=== PATIENT | female | born 1970 | race Two or more races ===

== ENCOUNTER 2022-07-02 12:34 | Day surgery (SDC) | payer OTHER, SELFPAY ==
[2022-07-02 13:20] VITALS: BP 116/80; PULSE 69; RESP 16; TEMP 36.1; O2SAT 99; BMI 32.9
--- NOTE | 2022-07-02 13:51 | MHC.SHP ---
Pre-Procedural Eval Section A Date of Service: 07/02/22 The patient is an INPATIENT: No Changes since office visit: No Cold of Flu in the past 2 weeks, No New Medical Problems, No Changes in Medication and No Patient answered all questions The History & Physical has been completed within 30 days and I have reviewed it.: Yes Section B Chief Complaint: GERD Allergies: Allergies Allergy/AdvReac Type Severity Reaction Status Date / Time acetaminophen [From Tylenol] Allergy Unknown Unverified 07/01/22 07:49 ciprofloxacin Allergy Unknown Unverified 07/01/22 07:49 codeine Allergy Unknown Unverified 07/01/22 07:49 dicyclomine [From Bentyl] Allergy Unknown Unverified 07/01/22 07:49 divalproex sodium Allergy Unknown Unverified 07/01/22 07:49 [From Depakote] lubiprostone Allergy Unknown Unverified 07/01/22 07:49 pseudoephedrine Allergy Unknown Unverified 07/01/22 07:49 sulfamethoxazole Allergy Unknown Unverified 07/01/22 07:49 [From Bactrim] trimethoprim [From Bactrim] Allergy Unknown Unverified 07/01/22 07:49 valproic acid Allergy Unknown Unverified 07/01/22 07:49 Plan I have reviewed the history and physical and performed a pertinent physical examination on my patient. No changes have occurred unless specified. Time Spent With Patient Time: Total time managing care of this patient today ____ minutes.
--- NOTE | 2022-07-02 14:18 | P.BOP_ITS ---
Brief Operative Note Date of Service: 07/02/22 Pre-op diagnosis: gerd Post-op diagnosis: same Procedure: egd Surgeon: Randolph Bhagat Anesthesia: MAC Was an Veterinary Practice Manager used for this Procedure?: No Estimated blood loss (mL): 1 Pathology: other Condition: stable Disposition: PACU
[2022-07-02 14:29] VITALS: BP 97/61; PULSE 80; RESP 18; TEMP 36.1; O2SAT 99
[2022-07-02 14:44] VITALS: BP 118/82; PULSE 80; RESP 18; TEMP 36.3; O2SAT 99
--- NOTE | 2022-07-02 23:02 | OP_ITS ---
DATE OF SERVICE: 07/02/2022 SURGEON: Randolph Bhagat MD INDICATIONS: Gastroesophageal reflux disease. PREOPERATIVE DIAGNOSIS: POSTOPERATIVE DIAGNOSIS: PROCEDURE PERFORMED: Upper endoscopy with biopsy. ESTIMATED BLOOD LOSS: COMPLICATIONS: ANESTHESIA: Monitored anesthesia care. ASSISTANTS: SPECIMENS: DESCRIPTION OF PROCEDURE: History and physical was performed. The risks and benefits of the procedure were explained to the patient. Informed consent was obtained. The patient was placed in the left lateral decubitus position. The Olympus video gastroscope was introduced into the esophagus, stomach, and duodenum. Examination was performed. The scope was removed. She tolerated the procedure well and was returned to the recovery area in stable condition. FINDINGS: Esophagus: The esophagus was normal. There was no esophagitis. The EG junction was slightly irregular. Stomach: The stomach showed no evidence of masses or ulcers. Multiple benign-appearing gastric polyps measuring less than 5 mm were present in the body and fundus consistent with fundic gland polyps. Biopsies were obtained from the antrum and from the polyps. Biopsies were also obtained from the EG junction. Duodenum: The bulb and 2nd portion were normal. IMPRESSION: 1. Gastric polyps. 2. Gastroesophageal reflux disease. RECOMMENDATION: Follow up the biopsy results. MD ALIVIA Frey/MAMADOU / [id number]
== END 2022-07-02 15:24 | disposition home or self-care (01) ==
PROVIDERS: PCP Internal Medicine; Visit Provider Internal Medicine Gastroenterology
PROC: 0DJ08ZZ Inspection of Upper Intestinal Tract, Via Natural or Artificial Opening Endoscopic (ICD-10-PCS; CPT 43235; principal; 2022-07-02 13:00)
DX: K21.9 Gastro-esophageal reflux disease without esophagitis (principal); K31.7 Polyp of stomach and duodenum; K58.1 Irritable bowel syndrome with constipation; E03.9 Hypothyroidism, unspecified; G43.909 Migraine, unspecified, not intractable, without status migrainosus; G47.33 Obstructive sleep apnea (adult) (pediatric); Z79.899 Other long term (current) drug therapy; Z88.1 Allergy status to other antibiotic agents; Z88.8 Allergy status to other drugs, medicaments and biological substances; Z98.890 Other specified postprocedural states
CPT/HCPCS: 43239; 88305; 88342

== ENCOUNTER 2023-04-17 09:44 | Day surgery (SDC) | payer OTHER, SELFPAY ==
[2023-04-15 13:20] VITALS: BMI 34.7
--- NOTE | 2023-04-17 09:34 | HO.ANESPROP2 ---
[facility]LY [facility] Past Medical History Medical History Common bile duct dilatation Sphincter of Oddi dysfunction CPAP (continuous positive airway pressure) dependence Obstructive sleep apnea GERD (gastroesophageal reflux disease) Constipation Depression Anxiety Back pain Neck pain Hypothyroidism Migraines Surgical History Surgical History History of esophagogastroduodenoscopy (EGD) History of ERCP History of Problems with Anesthesia: No Social History Social History Patient Tobacco Use Status: Former Tobacco user Meds Allergies Allergy/AdvReac Type Severity Reaction Status Date / Time acetaminophen [From Tylenol] Allergy Unknown Unverified 04/17/23 09:49 ciprofloxacin Allergy Unknown Unverified 04/17/23 09:49 codeine Allergy Hives Unverified 04/17/23 09:59 dicyclomine [From Bentyl] Allergy Vomiting Unverified 04/17/23 09:59 lubiprostone Allergy Gastrointestinal Unverified 04/17/23 09:59 Upset pseudoephedrine Allergy Unknown Unverified 04/17/23 09:49 sulfamethoxazole Allergy Hives Unverified 04/17/23 09:59 [From Bactrim] trimethoprim [From Bactrim] Allergy Hives Unverified 04/17/23 09:59 valproic acid Allergy Unknown Unverified 04/17/23 09:49 divalproex sodium AdvReac Unknown Unverified 04/17/23 09:59 [From Depakote] Home Medications Medication Instructions Recorded Confirmed Last Taken Type buspirone 15 mg tablet 15 mg PO BID 07/01/22 04/15/23 Unknown History cetirizine 10 mg tablet 10 mg PO DAILY 07/01/22 04/15/23 Unknown History eletriptan 40 mg tablet 40 mg PO DAILY 07/01/22 04/15/23 Unknown History escitalopram oxalate 20 mg tablet 20 mg PO DAILY 07/01/22 Unknown History esomeprazole magnesium 40 mg 40 mg PO DAILY 07/01/22 04/15/23 Unknown History capsule,delayed release famotidine 20 mg tablet 20 mg PO BEDTIME 07/01/22 Unknown History fremanezumab-vfrm 225 mg/1.5 mL mg subcut 07/01/22 Unknown History subcutaneous auto-injector hydroxyzine HCl 50 mg/mL 50 mg IM Q6H PRN unknown 07/01/22 Unknown History intramuscular solution levothyroxine 150 mcg tablet 150 mcg PO DAILY 07/01/22 04/15/23 Unknown History lubiprostone 24 mcg capsule 24 mcg PO BID 07/01/22 Unknown History mirtazapine 30 mg tablet 30 mg PO BEDTIME 07/01/22 Unknown History omega-3 fatty acids-vitamin E 1,000 cap PO DAILY 07/01/22 07/01/22 Unknown History 1,000 mg capsule onabotulinumtoxinA 200 unit unit 07/01/22 07/01/22 Unknown History solution for injection quetiapine 100 mg PO BEDTIME 07/01/22 04/15/23 Unknown History rosuvastatin 40 mg tablet 40 mg PO DAILY 07/01/22 04/15/23 Unknown History topiramate 25 mg tablet (Topamax) 25 mg PO DAILY 07/01/22 04/15/23 Unknown History zolpidem 10 mg tablet 10 mg PO BEDTIME PRN Insomnia 07/01/22 04/15/23 Unknown History sertraline 25 mg tablet 25 mg PO DAILY 04/15/23 04/15/23 Unknown History Exam Height,Weight and Vital Signs: Height 5 ft 6 in Weight 97.522 kg Airway Mallampati Class: II TM Dist: >3cm Neck ROM: Full Loose/Missing/Broken Teeth: No Heart: RRR Lungs: CTA Assessment and Plan Assessment Anesthesia Assessment: Anesthesia Plan Discussed and Chart Reviewed Final Anesthetic Review History of Problems with Anesthesia: No NPO: Yes ASA Class: II Final Preanesthetic Review: Meds/Allgs Chart Reviewed, Consent Obtained/Reviewed and Anes Risks/Benef Reviewed Patient Risk: Low Procedure Risk: Low Anesthetic Plan Anesthetic Plan: MAC: Disposition: Standard PACU
[2023-04-17 09:53] VITALS: BMI 34.7
[2023-04-17] MEDS: Lactated Ringers 1,000 ML 80 ML IVCONT (10:14)
[2023-04-17 10:28] VITALS: BP 121/84; PULSE 85; RESP 18; TEMP 36.7; O2SAT 99
--- NOTE | 2023-04-17 10:35 | MHC.SHP ---
Pre-Procedural Eval Section A - 24 Hr Update-Section A only Date of Service: 04/17/23 Section B - Complete if H&P > 30 days Chief Complaint: Epigastric pain Details of Present Illness: see H&P no changes Relevant Family History (Specify if Yes): No Relevant Social History: None Present Medications: see Short Stay Collaborative assessment Medical History: No relevant PMH Allergies: Allergies Allergy/AdvReac Type Severity Reaction Status Date / Time acetaminophen [From Tylenol] Allergy Unknown Unverified 04/17/23 09:49 ciprofloxacin Allergy Unknown Unverified 04/17/23 09:49 codeine Allergy Hives Unverified 04/17/23 09:59 dicyclomine [From Bentyl] Allergy Vomiting Unverified 04/17/23 09:59 lubiprostone Allergy Gastrointestinal Unverified 04/17/23 09:59 Upset pseudoephedrine Allergy Unknown Unverified 04/17/23 09:49 sulfamethoxazole Allergy Hives Unverified 04/17/23 09:59 [From Bactrim] trimethoprim [From Bactrim] Allergy Hives Unverified 04/17/23 09:59 valproic acid Allergy Unknown Unverified 04/17/23 09:49 divalproex sodium AdvReac Unknown Unverified 04/17/23 09:59 [From Depakote] Review of Systems Sugical H&P ROS: Negative: Constitution, Cardiovascular, Respiratory, Neurological, Psychiatric, Hem-Onc, Allergic/Immunologic, Gastrointestinal, Genitourinary, Musculoskeletal, Integumentary, Endocrine and Eyes/Ears/Nose/Throat Exam Surgical H&P Exam: Normal: HEENT, Normal: Heart, Normal: Lungs, Normal: Extremities, Normal: Abdomen, Normal: Skin and Normal: Neurological Plan Diagnosis/Plan: Unchanged I have reviewed the history and physical and performed a pertinent physical examination on my patient. No changes have occurred unless specified. Time Spent With Patient Time: Total time managing care of this patient today ____ minutes.
[2023-04-17 11:00] VITALS: BP 98/67; PULSE 86; RESP 16; TEMP 36.5; O2SAT 99
[2023-04-17 11:15] VITALS: BP 111/73; PULSE 73; RESP 16; O2SAT 100
[2023-04-17 11:30] VITALS: BP 127/82; PULSE 69; RESP 16; TEMP 36.3; O2SAT 97
--- NOTE | 2023-04-17 11:44 | OP_ITS ---
DATE OF SERVICE: 04/17/2023 SURGEON: Randolph Bhagat MD INDICATIONS: Epigastric pain. PREOPERATIVE DIAGNOSIS: POSTOPERATIVE DIAGNOSIS: PROCEDURE PERFORMED: Colonoscopy to the terminal ileum with biopsy. ESTIMATED BLOOD LOSS: COMPLICATIONS: ANESTHESIA: Monitored anesthesia care. ASSISTANTS: SPECIMENS: DESCRIPTION OF PROCEDURE: A history and physical was performed. The risks and benefits of the procedure were explained to the patient. Informed consent was obtained. The patient was placed in the left lateral decubitus position. A digital rectal exam was performed and was found to be normal. The Olympus pediatric video colonoscope was introduced into the rectum and advanced to the cecum. The cecum was identified by transillumination, palpation, and identification of the ileocecal valve. Examination was performed. The scope was removed. She tolerated the procedure well and was taken to recovery area in stable condition. FINDINGS: The terminal ileum was normal. The visualized colonic mucosa was normal. The quality of the prep was good. No polyps were identified. Random biopsies were obtained from the sigmoid to rule out microscopic colitis. Retroflexed examination showed small internal hemorrhoids. IMPRESSION: Normal colonoscopy. RECOMMENDATIONS: 1. Follow up the biopsy results. 2. Repeat colonoscopy is recommended in 10 years for average risk individuals. MD ALIVIA Frey/MAMADOU / [id number]
[2023-04-17 11:51] VITALS: BP 126/85; PULSE 88; RESP 17; TEMP 36.1; O2SAT 100
== END 2023-04-17 12:25 | disposition home or self-care (01) ==
PROVIDERS: PCP Family Medicine; Visit Provider Internal Medicine Gastroenterology
PROC: 0DJD8ZZ Inspection of Lower Intestinal Tract, Via Natural or Artificial Opening Endoscopic (ICD-10-PCS; CPT 45378; principal; 2023-04-17 10:50)
DX: R10.13 Epigastric pain (principal); K63.89 Other specified diseases of intestine; K59.00 Constipation, unspecified; K64.8 Other hemorrhoids; K21.9 Gastro-esophageal reflux disease without esophagitis; G43.909 Migraine, unspecified, not intractable, without status migrainosus; E03.9 Hypothyroidism, unspecified; G47.33 Obstructive sleep apnea (adult) (pediatric); F32.A Depression, unspecified; F41.9 Anxiety disorder, unspecified; Z79.899 Other long term (current) drug therapy; Z99.89 Dependence on other enabling machines and devices; Z88.1 Allergy status to other antibiotic agents; Z88.5 Allergy status to narcotic agent; Z88.8 Allergy status to other drugs, medicaments and biological substances; Z90.49 Acquired absence of other specified parts of digestive tract
CPT/HCPCS: 45380; 88305; J2704

== ENCOUNTER 2024-02-17 10:35 | Outpatient (REF) | payer OTHER, SELFPAY ==
[2024-02-17 12:53] LABS: MANUAL DIFF FLAG NO
[2024-02-17 12:56] LABS: Basophils Percent Auto 0.6 % (0-2); Eosinophils Absolute Auto 0.2 X10*3/uL (0.0-0.4); Eosinophils Percent Auto 4.9 % (0-4); Hematocrit 41.8 % (37.0-47.0); Hemoglobin 13.6 g/dl (12.0-16.0); Imm Gran Abs Auto 0.01 X10*3/uL (0.00-0.03); Imm Gran Pct Auto 0.2 % (0.0-0.4); Lymphocytes Absolute Auto 1.9 X10*3/uL (1.2-4.9); Lymphocytes Percent Auto 39.5 % (20-40); Mean Corpuscular HGB Conc 32.5 g/dl (31.0-35.0); Mean Corpuscular Hemoglobin 28.8 pg (27.0-33.0); Mean Corpuscular Volume 88.4 fL (80.0-98.0); Mean Platelet Volume 9.5 fL (9.4-12.3); Monocytes Absolute Auto 0.3 X10*3/uL (0.1-1.2); Monocytes Percent Auto 6.8 % (2-11); Neutrophils Absolute Auto 2.3 x10*3/uL (2.0-8.3); Platelet Count 247 X10*3/uL (160-400); Red Blood Count 4.73 X10*6/uL (4.20-5.50); Red Cell Distribution Width 14.3 % (11.0-16.0); White Blood Count 4.9 X10*3/uL (4.8-10.8)
[2024-02-17 13:18] LABS: Alanine Aminotransferase 32 U/L (0-31); Albumin Level 4.2 g/dL (3.5-5.0); Alkaline Phosphatase 125 U/L (39-117); Aspartate Amino Transferase 32 U/L (5-31); Bilirubin Direct 0.1 mg/dL (0.0-0.5); Bilirubin Total 0.3 mg/dL (0.0-1.0); Lipase 16 U/L (8-78); Total Protein 7.5 g/dL (6.5-8.0)
[2024-02-17 13:24] LABS: TSH reflex Free T4 12.35 uIU/mL (0.32-4.0)
[2024-02-17 14:23] LABS: Free T4 (Free Thyroxine) 1.04 ng/dL (0.71-1.85)
== END 2024-02-17 10:36 | disposition home or self-care (01) ==
LOC: HO.10HDL 10:35
PROVIDERS: Visit Provider Internal Medicine Gastroenterology
DX: K21.9 Gastro-esophageal reflux disease without esophagitis (principal); R10.10 Upper abdominal pain, unspecified
CPT/HCPCS: 36415; 80076; 83690; 84439; 84443; 85025

== ENCOUNTER 2024-02-23 09:57 | Day surgery (SDC) | payer OTHER, SELFPAY ==
--- OUTSIDE RECORDS SUMMARY | 2024-02-22 18:54 | XMS_ITS | Continuity of Care Document ---
Author Organization [facility] Address [address] [facility] [address] [place] [phone] Phone Care Team Providers Care Home Health Care Physician Name Role Phone Jovany Christian Unavailable Unavailable Advance Directives Directive Yes / No Effective Date File Name No Information Encounters Encounter Description Practice Location Reason(s) For Visit Diagnoses Date Provider Providers Copied on Encounter [facility], [address] [facility], [place], [place], [id number], tel:[phone] [address] [facility] No Information Anahi Manzo. [address] [place] [address] [id number], [place], [facility], . tel:[phone] Referring Provider: Jovany Mondragon, [address] [facility] [address], [place], [facility]. tel:[phone] Family History Family Member Type Diagnosis Age At Onset No Information Payers Payer name Insurance type Covered democrat ID Authoriza tion(s) No Information Social History Type Description Quantity Date Captured Comments Sex Female Smoking Status No Information Chief Complaint And Reason For Visit No Information Reason For Referral Reason For Referral No Information History Of Present Illness Encounter Date Complaint History Of Prese nt Illness No Information Functional Status Date Functional Assessmen t No Information Instructions Date Instruction Additional Infor mation No Information Assessments Type Assessment Date No Information Patient Care Teams Name Effective Dates (start - stop) Status Members No Information
[2024-02-23 11:22] VITALS: BMI 33.4
[2024-02-23 11:24] VITALS: BP 111/73; PULSE 90; RESP 14; TEMP 36.8; O2SAT 98
[2024-02-23] MEDS: Lactated Ringers 1,000 ML 80 ML IVCONT (11:27)
--- NOTE | 2024-02-23 11:33 | HO.ANESPROP2 ---
[facility] Past Medical History Medical History Common bile duct dilatation Sphincter of Oddi dysfunction CPAP (continuous positive airway pressure) dependence Obstructive sleep apnea GERD (gastroesophageal reflux disease) Constipation Depression Anxiety Back pain Neck pain Hypothyroidism Migraines Surgical History Surgical History History of esophagogastroduodenoscopy (EGD) History of ERCP History of Problems with Anesthesia: No Social History Social History Are you a primary long term care administrator to a significant other at home: No Do you presently have visiting nurse or other home services: No Patient Tobacco Use Status: Former Tobacco user Use of substances other than those prescribed or required for medical reasons: No Have you been hit, kicked, punched, or otherwise hurt by someone within the past year? If so, by whom?: No Are you DNR?: No Advance Directives: No Advance Directives Information Provided: Yes Recently lost weight without trying: No Nutrition Risks: No Nutritional Risk Patient : No Meds Allergies Allergy/AdvReac Type Severity Reaction Status Date / Time acetaminophen [From Tylenol] Allergy Unknown Verified 02/23/24 11:17 ciprofloxacin Allergy Unknown Verified 02/23/24 11:17 codeine Allergy Hives Verified 02/23/24 11:17 dicyclomine [From Bentyl] Allergy Vomiting Verified 02/23/24 11:17 lubiprostone Allergy Gastrointestinal Verified 02/23/24 11:17 Upset pseudoephedrine Allergy Unknown Verified 02/23/24 11:17 sulfamethoxazole Allergy Hives Verified 02/23/24 11:17 [From Bactrim] trimethoprim [From Bactrim] Allergy Hives Verified 02/23/24 11:17 valproic acid Allergy Unknown Verified 02/23/24 11:17 divalproex sodium AdvReac Unknown Verified 02/23/24 11:17 [From Depakote] Active Medications: Current Medications Lactated Ringer's (Lr) 1,000 mls @ 80 mls/hr IVCONT .[id number] ABBY Last Admin: 02/23/24 11:27 Dose: 80 mls/hr Home Medications ?Medication ?Instructions ?Recorded ?Confirmed ?Last Taken ?Type buspirone 15 mg tablet 15 mg PO BID 05/23/23 03/06/24 Unknown History cetirizine 10 mg tablet 10 mg PO DAILY 07/01/22 04/15/23 Unknown History eletriptan 40 mg tablet 40 mg PO DAILY 07/01/22 04/15/23 Unknown History escitalopram oxalate 20 mg tablet 20 mg PO DAILY 07/01/22 Unknown History esomeprazole magnesium 40 mg 40 mg PO DAILY 07/01/22 04/15/23 Unknown History capsule,delayed release famotidine 20 mg tablet 20 mg PO BEDTIME 07/01/22 Unknown History fremanezumab-vfrm 225 mg/1.5 mL mg subcut 07/01/22 Unknown History subcutaneous auto-injector hydroxyzine HCl 50 mg/mL 50 mg IM Q6H PRN unknown 07/01/22 Unknown History intramuscular solution levothyroxine 150 mcg tablet 150 mcg PO DAILY 07/01/22 04/15/23 04/17/23 History lubiprostone 24 mcg capsule 24 mcg PO BID 07/01/22 Unknown History mirtazapine 30 mg tablet 30 mg PO BEDTIME 07/01/22 Unknown History omega-3 fatty acids-vitamin E 1,000 cap PO DAILY 07/01/22 07/01/22 Unknown History 1,000 mg capsule onabotulinumtoxinA 200 unit unit 07/01/22 07/01/22 Unknown History solution for injection quetiapine 100 mg PO BEDTIME 07/01/22 04/15/23 Unknown History rosuvastatin 40 mg tablet 40 mg PO DAILY 07/01/22 04/15/23 Unknown History topiramate 25 mg tablet (Topamax) 25 mg PO DAILY 07/01/22 04/15/23 04/17/23 History zolpidem 10 mg tablet 10 mg PO BEDTIME PRN Insomnia 07/01/22 04/15/23 Unknown History sertraline 25 mg tablet 25 mg PO DAILY 04/15/23 04/15/23 Unknown History Exam Height,Weight and Vital Signs: Height 5 ft 6 in Weight 93.894 kg Last Vital Signs Temp 98.2 F 02/23/24 11:24 Pulse 90 02/23/24 11:24 Resp 14 02/23/24 11:24 BP 111/73 02/23/24 11:24 Pulse Ox 98 02/23/24 11:24 O2 Del Method Room Air 01/14/25 11:24 Airway Mallampati Class: II TM Dist: >3cm Neck ROM: Full Loose/Missing/Broken Teeth: No Heart: RRR Lungs: CTA Assessment and Plan Assessment Anesthesia Assessment: Anesthesia Plan Discussed and Chart Reviewed Final Anesthetic Review History of Problems with Anesthesia: No NPO: Yes ASA Class: III Final Preanesthetic Review: Meds/Allgs Chart Reviewed and Consent Obtained/Reviewed Patient Risk: Low Procedure Risk: Intermediate Anesthetic Plan Anesthetic Plan: MAC: Disposition: Standard PACU
--- NOTE | 2024-02-23 11:33 | MHC.SHP ---
Pre-Procedural Eval Section A - 24 Hr Update-Section A only Date of Service: 02/23/24 The patient is an INPATIENT: No Changes since office visit: No Cold of Flu in the past 2 weeks, No New Medical Problems, No Changes in Medication and No Patient answered all questions The patient has been examined within 24 hours of the surgical procedure. The History & Physical has been completed within 30 days and I have reviewed it.: Yes Section B - Complete if H&P > 30 days Chief Complaint: Upper abdominal pain,gerd, Allergies: Allergies Allergy/AdvReac Type Severity Reaction Status Date / Time acetaminophen [From Tylenol] Allergy Unknown Verified 02/23/24 11:17 ciprofloxacin Allergy Unknown Verified 02/23/24 11:17 codeine Allergy Hives Verified 02/23/24 11:17 dicyclomine [From Bentyl] Allergy Vomiting Verified 02/23/24 11:17 lubiprostone Allergy Gastrointestinal Verified 02/23/24 11:17 Upset pseudoephedrine Allergy Unknown Verified 02/23/24 11:17 sulfamethoxazole Allergy Hives Verified 02/23/24 11:17 [From Bactrim] trimethoprim [From Bactrim] Allergy Hives Verified 02/23/24 11:17 valproic acid Allergy Unknown Verified 02/23/24 11:17 divalproex sodium AdvReac Unknown Verified 02/23/24 11:17 [From Depakote] Plan I have reviewed the history and physical and performed a pertinent physical examination on my patient. No changes have occurred unless specified. Time Spent With Patient Time: Total time managing care of this patient today ____ minutes.
[2024-02-23 12:07] VITALS: BP 101/65; PULSE 100; RESP 16; TEMP 36.2; O2SAT 95
[2024-02-23 12:22] VITALS: BP 101/59; PULSE 95; RESP 16; TEMP 36.2; O2SAT 96
--- NOTE | 2024-02-23 12:27 | OP_ITS ---
DATE OF SERVICE: 02/23/2024 SURGEON: Randolph Bhagat MD INDICATIONS: Gastroesophageal reflux disease and abdominal pain. PREOPERATIVE DIAGNOSIS: POSTOPERATIVE DIAGNOSIS: PROCEDURE PERFORMED: Upper endoscopy with biopsy. ESTIMATED BLOOD LOSS: COMPLICATIONS: ANESTHESIA: Monitored anesthesia care. ASSISTANTS: SPECIMENS: DESCRIPTION OF PROCEDURE: A history and physical was performed. The risks and benefits of the procedure were explained to the patient. Informed consent was obtained. The patient was placed in the left lateral decubitus position. The Olympus video gastroscope was introduced into the esophagus, stomach, and duodenum. Examination was performed. The scope was removed. She tolerated the procedure well and was returned to recovery area in stable condition. FINDINGS: Esophagus. The esophagus was normal. There was no esophagitis. There was a small 2 to 3 cm sliding hiatal hernia. Biopsies were obtained from the EG junction. Stomach. Stomach showed no evidence of masses, ulcers, or polyps. Antral biopsies were obtained to evaluate for H pylori. Duodenum. The bulb and 2nd portion were normal. Biopsies were obtained from the 2nd portion. IMPRESSION: 1. Gastroesophageal reflux disease. 2. Hiatal hernia. RECOMMENDATIONS: Follow up with the biopsy results. MD ALIVIA Frey/MAMADOU / [id number]
== END 2024-02-23 12:46 | disposition home or self-care (01) ==
PROVIDERS: PCP Nurse Practitioner Family; Visit Provider Internal Medicine Gastroenterology
PROC: 0DJ08ZZ Inspection of Upper Intestinal Tract, Via Natural or Artificial Opening Endoscopic (ICD-10-PCS; CPT 43235; principal; 2024-02-23 12:20)
DX: R10.10 Upper abdominal pain, unspecified (principal); K29.50 Unspecified chronic gastritis without bleeding; K21.9 Gastro-esophageal reflux disease without esophagitis; K44.9 Diaphragmatic hernia without obstruction or gangrene; K59.01 Slow transit constipation; G47.33 Obstructive sleep apnea (adult) (pediatric); E03.9 Hypothyroidism, unspecified; F41.9 Anxiety disorder, unspecified; Z79.899 Other long term (current) drug therapy; Z99.89 Dependence on other enabling machines and devices; Z90.49 Acquired absence of other specified parts of digestive tract; Z98.890 Other specified postprocedural states; Z88.1 Allergy status to other antibiotic agents; Z88.5 Allergy status to narcotic agent; Z88.8 Allergy status to other drugs, medicaments and biological substances
CPT/HCPCS: 43239; 88305; 88313; 88342; J2003; J2704

== ENCOUNTER 2024-04-14 13:04 | Outpatient (REF) | payer OTHER, SELFPAY ==
--- NOTE | ~2024-04-14 | CT_ITS ---
CLINICAL HISTORY: RUQ ABD PAIN CT abdomen and pelvis with contrast Comparison: None Findings: Mild left basilar atelectasis. Partially evaluated bilateral breast implants. Gallbladder not individualized and is likely surgically absent. Dilated common hepatic bile duct measuring up to 17 mm in width, at least partially secondary to the cholecystectomy state. If clinically indicated finding could be further evaluated with MRCP. Mild dilatation of the intrahepatic bile ducts, within expected range for post cholecystectomy state. Spleen, pancreas, adrenal glands, and kidneys are unremarkable. Specifically no evidence of urinary tract stone or hydronephrosis. [id number] colonic stool. No bowel obstruction. Normal appendix. Hysterectomy. 24 mm left adnexal cyst could be further characterized with ultrasound. No acute fracture. Spinal degenerative changes. Atherosclerotic vascular calcifications. IMPRESSION: 1. Gallbladder not individualized and is likely surgically absent. Dilated common hepatic bile duct measuring up to 17 mm in width, at least partially secondary to the cholecystectomy state. If clinically indicated finding could be further evaluated with MRCP. 2. 24 mm left adnexal cyst could be further characterized with ultrasound. This document has been electronically signed by: Kendal Mitchell MD on 04/16/2024 05:45:12
--- OUTSIDE RECORDS SUMMARY | 2024-04-14 15:47 | XMS_ITS ---
Author Organization [facility] Address [address] [place] [phone] Care Team Providers Care Milk Delivery Driver Name Role Phone Bailey Foreman N.P Primary Care Provider Unavail able Randolph Bhagat Jr Unavailable REASON FOR VISIT pathology Encounters Encounter Location Date Provider Diagnosis [facility] [address] [place] [phone] 03/03/2024 Randolph Bhagat Jr Plan Of Treatment No Information Progress Notes * SCARLET HEIJEOMA: (54 yo F)Acc No.[id number]:03/03/2024 Patient:?KAYLI HE RA :1970???Age:54 Y???Sex:Female Address:[address] [place] [address], [id number] * true * Date:? Generated for Darío houser/Clint/eTransmitting on:?04/14/2024 03:47 PM EST
--- OUTSIDE RECORDS SUMMARY | 2024-04-14 15:47 | XMS_ITS ---
Author Organization [facility] Address [address] [place] [phone] Care Team Providers Care Project Management Professor Name Role Phone Bailey Foreman N.P Primary Care Provider Unavail able Randolph Bhagat Jr Unavailable [phone] REASON FOR VISIT epigastric pain, upper abdominal pain Problems Problem Type SNOMED Code ICD Code Onset Dates Problem Status W/U Status Risk Notes Problem Gastroesophageal reflux disease (disorder) (324639695) Chronic GERD (K21.9) Active confirmed Problem Congenital hiatus hernia (16860800) Congenital hiatus hernia (Q40.1) Active confirmed Encounters Encounter Location Date Provider Diagnosis [facility] Outpatient [address] [place] [phone] 02/23/2024 Randolph Bhagat Jr Chronic GERD K21.9 ; Abdominal pain R10.9 and Congenital hiatus hernia Q40.1 Assessments Encounter Date Diagnosis (ICD Code) Assessment Notes Treatment Notes Treatment Clinical Notes Section Notes 02/23/2024 Chronic GERD (ICD-10 - K21.9) 02/23/2024 Abdominal pain (ICD-10 - R10.9) 02/23/2024 Congenital hiatus hernia (ICD-10 - Q40.1) Plan Of Treatment No Information Progress Notes * SCARLET HEDOB: (54 yo F)Acc No.[id number]:02/23/2024 EGD/MAC Patient:?KAYLI HE RA Provider:?Randolph Bhagat MD :1970???Age:54 Y???Sex:Female D ate:02/23/2024 Address:[address] [place], [place] [id number] Pcp:Bailey Foreman N.P Subjective: * Chief Complaints: * ???1. Epigastric pain, upper abdominal pain. * Medical History:? Objective: * Vitals:? Assessment: * Assessment: 1.?Chronic GERD - K21.9 (Marry marcia)???2.?Abdominal pain - R10.9???3.?Congenital hiatus hernia - Q40.1??? Plan: * Treatment: * Procedure Codes:?72572 UPPER GI ENDOSCOPY, BIOPSY * * The named appointment provid er may or may not be the originator of this progress note, and it is not deemed complete until electronically signed by the appointment provider. Sign off status: Pending * Provider:?Randolph Bhagat MD Date:?0 02/23/2024 Generated for Darío houser/Clint/eTgloriasmitting on:?04/14/2024 03:46 PM EST
--- OUTSIDE RECORDS SUMMARY | 2024-04-14 15:47 | XMS_ITS | Clinical Summary ---
Author Organization [facility] Address [address] [place] [address] Care Team Providers Care Firearms Model Maker Name Role Phone Pcp, No Primary Care Provider Unavailabl e Allergies No known active allergies Medications Medication Sig Dispensed Refills Start Date End Date Status benzonatate (TESSALON) 200 MG capsuleIndications :COVID-19 Take 1 capsule (200 mg total) by mouth 3 (three) times a day as needed for cough. 30 capsule 01/03/2022 Active nirmatrelvir-riton avir (PAXLOVID EMERGENCY USE) therapy packIndications:CO VID-19 Take 3 Tablets - 300 mg Nirmatrelvir (2 x 150 mg tablets) with 100 mg Ritonavir (1 x 100 mg tablet) twice daily by mouth for 5 Days. Dispense #20 Nirmatrelvir 150 mg Tablets and #10 Ritonavir 100 mg tablets. 30 tablet 01/03/2022 Active famotidine (PEPCID) 20 MG tabletIndications: Acute gastritis without hemorrhage, unspecified gastritis type Take 1 tablet (20 mg total) by mouth 2 (two) times a day. 30 tablet 01/24/2022 Active Social History Tobacco Use Types Packs/Day Years Used Date Smoking Tobacco: Never Assessed Sex and Gender Information Value Date Recorded Sex Assigned at Not on file Gender Identity Not on file Sexual Orientation Not on file Last Filed Vital Signs Vital Sign Reading Time Taken Comments Blood Pressure 113/77 01/24/2022 4:10 PM EST Pulse 80 01/24/2022 4:10 PM EST Temperature 36.7 ??C (98.1 ??F) 01/24/2022 4:10 PM ES T Respiratory Rate - - Oxygen Saturation 98% 01/24/2022 4:10 PM EST Inhaled Oxygen Concentration - - Weight 90.7 kg (200 lb) 01/24/2022 4:10 PM EST Height 167.6 cm (5' 6 ) 01/24/2022 4:10 PM EST Body Mass Index 32.28 01/24/2022 4:10 PM EST Plan of Treatment Health Maintenance Due Date Last Done Comments Hepatitis C Virus Screening 1970 DTaP/Tdap/Td Vaccines (1 - Tdap) 01/31/1987 Hepatitis B Vaccines (1 of 3 - 19+ 3-dose series) 01/31/1987 Pap Smear (Ages 21-65) 01/31/1989 Mammogram 2008 Colonoscopy 01/31/2013 Pneumococcal Vaccines 50+ (1 of 1 - PCV) 01/31/2018 Zoster (Shingles) Vaccine (1 of 2) 01/31/2018 Influenza Vaccine 09/10/2023 COVID-19 Vaccine ( - 2023-2 5 season) 2023 HIV Screening Completed 01/06/2020 Pneumococcal Vaccine: Pediat srinivasa (0-5 Years) and At-Risk Patients (6 to 49 Years) Aged Out No longer eligible b ased on patient's age to complete this topic Care Teams Firearms Model Maker Relationship Specialty Start Date End Date Pcp, No [address] [place] [address] PCP - General 12/10/21
--- OUTSIDE RECORDS SUMMARY | 2024-04-14 15:47 | XMS_ITS ---
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 Name Role Phone Bailey Foreman N.P Primary Care Provider Unavail able Randolph Bhagat Jr Unavailable REASON FOR VISIT hyoscyamine Medications Medication SIG (Take, Route, Frequency, Duration) Notes Start Date End Date Status Hyoscyamine Sulfate ER 0.375 MG 1 tablet Orally every 12 hrs for 30 days 10/05/2023 Active Encounters Encounter Location Date Provider Diagnosis [address] [address] 03/04/2024 Randolph Bhagat Jr Slow transit constipation K59.01 Assessments Encounter Date Diagnosis (ICD Code) Assessment Notes Treatment Notes Treatment Clinical Notes Section Notes 03/04/2024 Slow transit constipation (ICD-10 - K59.01) Plan Of Treatment Medication Medication Name Sig Start Date Stop Date Notes Hyoscyamine Sulfate ER 0.375 MG 1 tablet Orally every 12 hrs for 30 days 10/05/2023 Progress Notes * CELESTINE HEJERRYDOB: (54 yo F)Acc No.[id number]:03/04/2024 Patient:?KAYLI HE RA :1970???Age:54 Y???Sex:Female Address:[address] [place] [address], [address] * Refills? Refill Hyoscyamine Sulfate ER Tablet Extended Release 12 Hour, 0.375 MG, Orally, 60, 1 tablet, every 12 hrs, 30 days, Refills=6 * true * Date:? Generated for Darío houser/Clint/Ramu on:?04/14/2024 03:46 PM EST
--- OUTSIDE RECORDS SUMMARY | 2024-04-14 15:47 | XMS_ITS | Patient Health Record ---
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 Name Role Phone Bailey Foreman N.P Primary Care Provider Unavail able Randolph Bhagat Jr Unavailable [phone] Allergies Allergen (clinical drug ingredient) Drug/Non Drug Allergy documented on EMR Reaction Allergy Type Onset Date Status acetaminophen Acetaminophen Unknown Drug Allergy Active valproate Depakote Unknown Drug Allergy Active dicyclomine Bentyl Unknown Drug Allergy Activ e Bactrim Unknown Drug Allergy Active valproic acid Valproic Acid Unknown Drug Allergy Active ciprofloxacin Ciprofloxacin Unknown Drug Allergy Active pseudoephedrine Pseudoephedrine Unknown Drug Allergy Active lubiprostone Lubiprostone Unknown Drug Allergy A ctive codeine Codeine Unknown Drug Allergy Active Results Component Value Reference Range Notes Pathology Reviewed date:04/30/2023 08:11:58 AM Interpretation: Performing Lab:[facility], [address] [place] [address] Notes/Report: -------- -------- Name: Chanel Fairchild Age/Sex: 53/F : 1970 Unit#: [id number] Attend Dr: Randolph Bhagat MD Re04/17/23 Status : [facility] Location: [facility] Disch: -------- -------- SPEC : [id number] RECD : 04/17/23 STATUS: TIERRA COSME NUM: [id number] DEANA: 04/17/23-1054 [facility] DR: Randolph Bhagat MD ENTERED: 04/17/23 58 SP TYPE: Surgical OTHR DR: BAILEY NICOLE MD ORDERED: HE Stain/2, Gross Micro L4 Diagnosis Colon, sigmoid, biop sy: Colonic mucosa with pigmented lamina propria macrophages and lymphoid aggregate, otherwise specific change. Clinical History Pre-Op Dx: Abdominal pain Post-Op Dx: Normal colonoscopy Microscopic Description Microscopic sections reviewed. Material Received Sigmoid biopsies Gross Description Received in formalin labeled ?sigmoid bx's? are 2 sol rectangular tissue fragments each measuring 0.3 cm, lindsey bmitted in toto in a cassette labeled A. CEDS Copies To: Randolph Bhagat MD [address] [place] [address] [address] [place], [place] [phone] BAILEY NICOLE MD [address] [place] [address] -------- -------- Signed (si gnature on file) May Garcia 04/20/23 1516 -------- -------- END OF REPORT Complete Blood Count Auto Di ff Reviewed date:02/17/2024 02:42:39 PM Interpretation: Performing Lab:[facility], [address] [place] [address] Notes/Report: White Blood Count 4.9 4.8-10.8 X10*3/uL Red Blood Count 4.73 4.20-5.50 X10*6/uL Hemoglobin 13.6 12.0-16.0 g/dl Hematocrit 41.8 37.0-47.0 % Mean Corpuscular Volume 88.4 80.0-98.0 fL Mean Corpuscular Hemoglobin 28.8 27.0-33.0 pg Mean Corpuscular HGB Conc 32.5 31.0-35.0 g/dl Red Cell Distribution Width 14.3 11.0-16.0 % Platelet Count 247 160-400 X10*3/uL Mean Platelet Volume 9.5 9.4-12.3 fL Neutrophils Percent Auto 48.0 45-73 % Imm Gran Pct Auto 0.2 0.0-0.4 % Lymphocytes Percent Auto 39.5 20-40 % Monocytes Percent Auto 6.8 2-11 % Eosinophils Percent Auto 4.9 0-4 % Basophils Percent Auto 0.6 0-2 % NRBC Pct Auto 0.0 0.0-0.2 /100WBC Neutrophils Absolute Auto 2.3 2.0-8.3 x10*3/u L Imm Gran Abs Auto 0.01 0.00-0.03 X10*3/uL Lymphocytes Absolute Auto 1.9 1.2-4.9 X10*3/u L Monocytes Absolute Auto 0.3 0.1-1.2 X10*3/uL Eosinophils Absolute Auto 0.2 0.0-0.4 X10*3/u L Basophils Absolute Auto 0.0 0.0-0.2 X10*3/uL NRBC Abs Auto 0.000 0.0-0.012 X10*3/uL Liver Panel Reviewed date:02/17/2024 02:42:31 PM Interpretation: Performing Lab:[address] [address] Notes/Report: Bilirubin Total 0.3 0.0-1.0 mg/dL Bilirubin Direct 0.1 0.0-0.5 mg/dL Aspartate Amino Transferase 32 5-31 U/L Alanine Aminotransferase 32 0-31 U/L Total Protein 7.5 6.5-8.0 g/dL Albumin Level 4.2 3.5-5.0 g/dL Alkaline Phosphatase 125 39-117 U/L Lipase Reviewed date:02/17/2024 02:42:21 PM Interpretation: Performing Lab:[facility], [address] [place] [address] Notes/Report: Lipase 16 8-78 U/L Free T4 (Free Thyroxine) Reviewed date:02/17/2024 02:43:02 PM Interpretation: Performing Lab:[facility], [address] [place] [address] Notes/Report: Free T4 (Free Thyroxine) 1.04 0.71-1.85 ng/dL TSH reflex Free T4 Reviewed date:02/17/2024 02:42:14 PM Interpretation: Performing Lab:[facility], [address] [place] [address] Notes/Report: TSH reflex Free T4 12.35 0.32-4.0 uIU/mL Liver Panel Reviewed date:02/17/2024 02:42:07 PM Interpretation: Performing Lab:[address] [address] Notes/Report: Bilirubin Total 0.3 0.0-1.0 mg/dL Bilirubin Direct 0.1 0.0-0.5 mg/dL Aspartate Amino Transferase 32 5-31 U/L Alanine Aminotransferase 32 0-31 U/L Total Protein 7.5 6.5-8.0 g/dL Albumin Level 4.2 3.5-5.0 g/dL Alkaline Phosphatase 125 39-117 U/L Lipase Reviewed date:02/17/2024 02:42:01 PM Interpretation: Performing Lab:[facility], [address] [place] [address] Notes/Report: Lipase 16 8-78 U/L TSH reflex Free T4 Reviewed date:02/17/2024 02:42:56 PM Interpretation: Performing Lab:[facility], [address] [place] [address] Notes/Report: TSH reflex Free T4 12.35 0.32-4.0 uIU/mL Pathology Reviewed date:03/03/2024 02:36:55 PM Interpretation: Performing Lab:[facility], [address] [place] [address] Notes/Report: -------- -------- Name: Chanel Fairchild Age/Sex: 54/F : 1970 Unit#: [id number] Attend Dr: Randolph Bhagat MD Re02/23/24 Status : [facility] Location: [facility] Disch: -------- -------- SPEC : [id number] RECD: 02/23/24-1210 STATUS: TIERRA COSME NUM: [id number] DEANA: 02/23/24-[address]: Randolph Bhagat MD ENTERED: 02/23/24-12 37 SP TYPE: Surgical OTHR DR: BAILEY FOREMAN NP ORDERED: HE Stain/9, Gross Micro L4/3, IHC, Special st. 2/3, H. pylori, AB/PAS/3 Diagnosis A. Duodenum, biopsy: Duodenal mucosa within normal limits. B. Stomach, antrum, biopsy: Antral-type mucosa with mild chronic inactive inflammation; no Helicobacter orga nisms seen. C. EG junction, biopsy: - Cardiofundic-type mucosa with moderate chronic inactive inflammation; no intestinal metaplasia seen. - Active esophagitis (maximum eosinophil count 5 per high powered field). Clinical History Pre-Op Dx: Upper abd ominal pain, GERD Post-Op Dx: GERD, hi atal hernia Microscopic Description A-C. Microscopic sec tions examined. No metaplastic changes are seen, supported by AB/PAS stains (A, B and C); no Helicobacter organisms are seen, supported by H. pylori immunostain (B). Material Received A. Duodenum B. Antrum C. EG junction Gross Description Received in three parts. Part A: Received in formalin labeled ?duodenum? are 2 sol-pink irregular tissue fragments measuring 0.2 and 0. 3 cm, submitted in toto in a cassette labeled A. Part B: Received in formalin labeled ?antrum? are 2 sol-pink irregular tissue fragments measuring 0.25 and 0 .3 cm, submitted in toto in a cassette labeled B. Part C: Received in formalin labeled ?EG junction? are 4 cohen-white and cohen-pink irregular tissue fragments eac h measuring 0.3 cm, submitted in toto in a cassette labeled C. CEDS Special studies orde red and performed: Immunostain for H. pylori on B; AB/PAS stains on A, B and C CONTINUED ON NEXT PAGE -------- -------- Name: Chanel Fairchild Age/Sex: 54/F : 1970 Unit#: [id number] Attend Dr: Randolph Bhagat MD Re02/23/24 Status : [facility] Location: [facility] Disch: -------- -------- SPEC : [id number] RECD: 02/23/240 STATUS: TIERRA COSME NUM: [id number] DEANA: 02/23/241156 [facility] DR: Randolph Bhagat MD ENTERED: 02/23/24 37 SP TYPE: Surgical OTHR DR: BAILEY FOREMAN NP ORDERED: HE Stain/9, Gross Micro L4/3, IHC, Special st. 2/3, H. pylori, AB/PAS/3 Copies To: Randolph Bhagat MD [address] [place] [address] BAILEY FOREMAN NP [address] [place] [address] -------- -------- Signed (si gnature on file) Betito Diehl MD 02/25/24 1404 -------- -------- END OF REPORT Reason For Referral Referring Provider First Name Daniel Referring Provider Last Name Neto Referred Organization [facility] Referred Provider Randolph Bhagat Jr Referred Address [address],[place],[address],[place] Referred Provider Specialty Gastroentero logy General Notes Lily Duncan 08:15:18 AM EDT > requested a va referral from [facility] (faxed request) Referral Priority Routine Referring Provider First Name Daniel Referring Provider Last Name Neto Referred Organization [facility] Referred Provider Randolph Bhagat Jr Referred Address [address],[place],[address],[place] Referred Provider Specialty Gastroentero logy General Notes Lily Duncan 04:00:47 PM EST > REQUESTED A VA REFERAL FROM [facility] FOR VISIT WITH DR BHAGAT ON 02-17-2024 [phone] (LEFT MESSAGE ON THE ANSWERING MACHINE) Referral Priority Routine Medications Medication SIG (Take, Route, Frequency, Duration) Notes Start Date End Date Status Colace 100 MG 1 capsule as needed Orally Twice a a day for 30 day(s) 02/17/2024 Active busPIRone HCl 15 MG 1 tablet Orally Twic e a day Active Hyoscyamine Sulfate ER 0.375 MG 1 tablet Orally every 12 hrs for 30 days 10/05/2023 Active QUEtiapine Fumarate 100 MG 1 tablet at b edtime Orally Once a day for 30 day(s) Active Colace 100 MG 1 capsule as needed Orally Once a day for 30 day(s) 02/17/2024 Active OnabotulinumtoxinA 100 UNIT as directed Injection Active Esomeprazole Magnesium 40 MG 1 capsule O rally Twice a day for one month for 30 days 10/05/2023 Active Zolpidem Tartrate 10 MG 1 tablet at bedt gigi as needed Orally Once a day Active Topiramate ER 25 MG 1 capsule Orally Onc e a day for 30 day(s) Active Rosuvastatin Calcium 40 MG 1 tablet Oral ly Once a day for 30 day(s) Active Levothyroxine Sodium 150 MCG 1 tablet in the morning on an empty stomach Orally Once a day for 30 day(s) Active Fremanezumab-vfrm 225 MG/1.5ML 1.5 mL Subcutaneous for 30 day(s) Active Esomeprazole Magnesium 40 MG 1 capsule O rally Once a day for 30 day(s) Active Eletriptan Hydrobromide 40 MG 1 tablet O rally Once a day for 1 day(s) Active Sertraline HCl 25 MG 1 tablet Orally Onc e a day for 30 day(s) Active Cetirizine HCl 10 MG 1 tablet Orally Onc e a day for 30 day(s) Active Fish Oil 1000 MG 1 capsule Orally Onc e a day for 30 day(s) Active Immunizations Vaccine Route Administration Date Status Comme nts Influenza Unknown 02/09/2023 Administered Influenza Unknown 12/30/2022 Administered Influenza Unknown 06/23/2022 Refused Social History Tobacco Use: Social History Observation Description Date Details (start date - stop date) Never Smoker NA - NA Tobacco Use/Smoking Question Answer Notes Patient is a nonsmoker Alcohol Screen Question Answer Notes Did you have a drink contain ing alcohol in the past year? Yes How often did you have a dri nk containing alcohol in the past year? 2 to 4 times a month (2 points) How many drinks did you have on a typical day when you were drinking in the past year? 1 or 2 drinks (0 point) How often did you have 6 or more drinks on one occasion in the past year? Never (0 point) Points 2 Interpretation Negative Problems Problem Type SNOMED Code ICD Code Onset Dates Problem Status W/U Status Risk Notes Problem 73868189 Slow transit constipation (K59.01) Active confirmed Problem Congenital hiatus hernia (77966120) Congenital hiatus hernia (Q40.1) Active confirmed Problem Gastroesophageal reflux disease (941835405) Gastroesophageal reflux disease (K21.9) Active confirmed Problem Benign neoplasm of stomach (06943772) Gastric polyps (K31.7) Active confirmed Problem 202460235 Gastroesophageal reflux disease, unspecified whether esophagitis present (K21.9) Active confirmed Problem 092968893 Irritable bowel syndrome with predominant constipation (K58.1) Active confirmed Problem Gastroesophageal reflux disease (disorder) (800006281) Chronic GERD (K21.9) Active confirmed Vital Signs Temperature 96.9 degrees Fahrenheit 02/17/2024 Blood pressure diastolic 00 mm Hg 02/17/2024 Height 66 in 02/17/2024 Blood pressure systolic 000 mm Hg 02/17/2024 Weight 213 lbs 02/17/2024 BMI 34.38 kg/m2 02/17/2024 Encounters Encounter Location Date Provider Diagnosis [facility] [address] [facility] [place] [id number] 04/17/2023 Randolph Bhagat Jr Encounter for screening colonoscopy Z12.11 [facility] [address] [facility] [place] [id number] 02/23/2024 Randolph Bhagat Jr Chronic GERD K21.9 ; Abdominal pain R10.9 and Congenital hiatus hernia Q40.1 [facility] [address] [place] [facility] [address] 10/05/2023 Randolph Bhagat Jr Gastroesophageal reflux disease, unspecified whether esophagitis present K21.9 and Irritable bowel syndrome with predominant constipation K58.1 [facility] [address] [place] [address] 02/17/2024 Randolph Bhagat Jr Gastroesophageal reflux disease, unspecified whether esophagitis present K21.9 ; Pain of upper abdomen R10.10 and Slow transit constipation K59.01 [facility] [address] [place] [address] 04/30/2023 Randolph Bhagat Jr [facility] [address] [place] [address] 07/02/2023 Randolph Bhagat Jr [facility] [address] [place] [address] 10/05/2023 Randolph Bhagat Jr Gastroesophageal reflux disease, unspecified whether esophagitis present K21.9 [facility] [address] [place] [address] 10/05/2023 Randolph Bhagat Jr Gastroesophageal reflux disease, unspecified whether esophagitis present K21.9 [facility] [address] [place] [phone] 10/07/2023 Randolph Bhagat Jr Gastroesophageal reflux disease, unspecified whether esophagitis present K21.9 [facility] [address] [place] [address] 02/17/2024 Randolph Bhagat Jr Slow transit constipation K59.01 [facility] [address] [place] [address], [place] [address] 03/03/2024 Randolph Bhagat Jr [facility] [address] [place] [address] 03/04/2024 Randolph Bhagat Jr Slow transit constipation K59.01 Assessments Encounter Date Diagnosis (ICD Code) Assessment Notes Treatment Notes Treatment Clinical Notes Section Notes 04/17/2023 Encounter for screening colonoscopy (ICD-10 - Z12.11) 02/23/2024 Abdominal pain (ICD-10 - R10.9) 02/23/2024 Chronic GERD (ICD-10 - K21.9) 10/05/2023 Gastroesophageal reflux disease, unspecified whether esophagitis present (ICD-10 - K21.9) Gastroesophageal reflux disease material was printed We discussed her symptoms today. We recommended a trial of hyoscyamine for her symptoms of abdominal discomfort. She reports ultrasound imaging was done earlier this year at [facility] and this will be obtained. She will increase her Benefiber to twice daily and could try a small amount of MiraLax such as one half to one quarter of a dose to avoid her previous problems. She'll increase her esomeprazole to b.i.d. for one month and let us know how she's doing. Followup in 5 months. 10/05/2023 Irritable bowel syndrome with predominant constipation (ICD-10 - K58.1) We discussed her symptoms today. We recommended a trial of hyoscyamine for her symptoms of abdominal discomfort. She reports ultrasound imaging was done earlier this year at [facility] and this will be obtained. She will increase her Benefiber to twice daily and could try a small amount of MiraLax such as one half to one quarter of a dose to avoid her previous problems. She'll increase her esomeprazole to b.i.d. for one month and let us know how she's doing. Followup in 5 months. 02/17/2024 Pain of upper abdomen (ICD-10 - R10.10) We discussed her symptoms today. Her reflux is under poor control, and we recommended an endoscopy for further evaluation. We discussed her symptoms as of the procedure today. She understands these and agrees to proceed. She is advised to stop fish oil one week before the procedure. For her constipation and hard stools we recommended a trial of Colace. She will continue hyoscyamine for crampy abdominal discomfort. CT scanning of the abdomen and pelvis will be obtained given her multiple symptoms and family history of cancer in her brother. We discussed this today. Today's visit was 30 minutes. 02/17/2024 Gastroesophageal reflux disease, unspecified whether esophagitis present (ICD-10 - K21.9) We discussed her symptoms today. Her reflux is under poor control, and we recommended an endoscopy for further evaluation. We discussed her symptoms as of the procedure today. She understands these and agrees to proceed. She is advised to stop fish oil one week before the procedure. For her constipation and hard stools we recommended a trial of Colace. She will continue hyoscyamine for crampy abdominal discomfort. CT scanning of the abdomen and pelvis will be obtained given her multiple symptoms and family history of cancer in her brother. We discussed this today. Today's visit was 30 minutes. 10/05/2023 Gastroesophageal reflux disease, unspecified whether esophagitis present (ICD-10 - K21.9) 10/05/2023 Gastroesophageal reflux disease, unspecified whether esophagitis present (ICD-10 - K21.9) 10/07/2023 Gastroesophageal reflux disease, unspecified whether esophagitis present (ICD-10 - K21.9) 02/17/2024 Slow transit constipation (ICD-10 - K59.01) 03/04/2024 Slow transit constipation (ICD-10 - K59.01) 02/23/2024 Congenital hiatus hernia (ICD-10 - Q40.1) 02/17/2024 Slow transit constipation (ICD-10 - K59.01) We discussed her symptoms today. Her reflux is under poor control, and we recommended an endoscopy for further evaluation. We discussed her symptoms as of the procedure today. She understands these and agrees to proceed. She is advised to stop fish oil one week before the procedure. For her constipation and hard stools we recommended a trial of Colace. She will continue hyoscyamine for crampy abdominal discomfort. CT scanning of the abdomen and pelvis will be obtained given her multiple symptoms and family history of cancer in her brother. We discussed this today. Today's visit was 30 minutes. Plan Of Treatment Pending Test Test Name Order Date LIVER PROFILE 02/17/2024 LIPASE 02/17/2024 CBC w/o DIFF 02/17/2024 CT ABD & PELVIS WITH CONTRAST 02/17/2024 TSH REFLEX FREE T4 02/17/2024 Future Test Test Name Order Date UPPER GI ENDOSCOPY 06/23/2022 COLONOSCOPY 03/09/2023 UPPER GI ENDOSCOPY 02/17/2024 Insurance Providers Payer Name Payer Address Payer Phone Subscriber Number Group Number Insured Name Patient Relationship to Insured Coverage Start Date Coverage End Date [facility] [employer] [address] [place] [address] [id number] [facility] Self - patient is the insured Medical (General) History Medical History History ICD Code Migraines Hypothyroidism Pain in hip back and neck. Anxiety/depression Constipation Gastroesophageal reflux dise ase, EGD 07/01, no H. pylori or Patel's esophagus. ELDER/CPAP Colonoscopy 07/27, diverticul osis and hemorrhoids. Colonoscopy 05/02, normal including biopsies. Ten-year followup Surgical History Surgery Date(Month/Year) ERCP/sphincterotomy for pres umed sphincter of Oddi dysfunction and dilated common bile duct. 01/30 Cholecystectomy
[2024-04-14] MEDS: iohexoL 350 MG/ML 100 ML INFUS..BTL IV (16:39)
[2024-04-14] MEDS: Barium Sulfate Oral (Berry) 450 ML ORAL.SUSP 900 ML PO (16:40)
[2024-04-15 07:33] LABS: Creatinine POC 0.8 mg/dL (0.5-1.4); GFR POC > 60
== END 2024-04-14 13:05 | disposition home or self-care (01) ==
LOC: HO.CT 13:04
PROVIDERS: PCP Nurse Practitioner Family; Visit Provider Internal Medicine Gastroenterology
DX: R10.10 Upper abdominal pain, unspecified (principal)
CPT/HCPCS: 74177; 82565; Q9967

== ENCOUNTER → 2024-04-14 13:06 | Outpatient (BNV) | payer OTHER, SELFPAY | PROVIDERS: PCP Nurse Practitioner Family; Visit Provider Radiology Diagnostic Radiology | DX: R10.11 Right upper quadrant pain (principal) | CPT/HCPCS: 74177 ==